=== PATIENT | female | born 1985 | race Caucasian/White ===

== ENCOUNTER 2019-01-31 01:25 | Emergency (ER) | payer BC ==
[2019-01-31] MEDS ORDERED: Morphine 4 MG/ML VIAL ONE (01:46)
[2019-01-31] MEDS ORDERED: Ondansetron PF 4 MG/2 ML Vial ONE (01:46)
[2019-01-31 02:00] LABS: #Basophils 0.1 thou/uL (0.0-0.2); #Eosinphils 0.2 thou/uL (0.0-0.7); #Lymphocytes 2.7 thou/uL (1.20-3.40); #Monocytes 0.9 thou/uL (0.11-0.59); #Neutrophils 7.4 thou/uL (1.40-6.50); %Basophils 0.5 % (0.0-1.0); %Eosinophils 1.4 % (0.0-10.0); %Lymphocytes 24.2 % (21.0-51.0); %Monocytes 8.2 % (0.0-10.0); %Neutrophils 65.6 % (42.0-75.0); Hemoglobin 12.8 g/dL (12.0-16.0); Mean Corpuscular HGB CONC 33.9 g/dL (32.0-36.0); Mean Corpuscular Hemoglobin 29.7 pg (27.0-31.0); Mean Corpuscular Volume 87.6 fL (78.0-98.0); Platelet Count 342 thou/uL (130-400); RBC Distribution Width 12.1 % (11.5-14.5); White Blood Cell (WBC) Count 11.3 thou/uL (4.8-10.8)
[2019-01-31 02:09] LABS: Prothrombin Time 13.3 SEC (12.0-14.7)
[2019-01-31 02:15] LABS: BHCG - Serum Negative (NEGATIVE); Pregs Control Background? CLEAR/WHITE (CLR/WHITE); Pregs Control Bar Appear? YES (CONTROL BAR)
[2019-01-31 02:18] LABS: ALT (SGPT) 25 U/L (8-55); AST (SGOT) 24 U/L (5-34); Albumin 4.2 g/dL (3.5-5.0); Alkaline Phosphatase 75 U/L (40-110); Anion Gap 12 mmol/L (10-20); BUN (Urea Nitrogen) 16 mg/dL (7.0-18.7); Bilirubin, Total 0.3 mg/dL (0.2-1.2); Calc. Creatinine Clearance 0 mL/min (70-130); Calcium 9.2 mg/dL (7.8-10.44); Carbon Dioxide 26 mmol/L (22-29); Chloride 103 mmol/L (98-107); Estimated GFR-MDRD 82; Globulin 2.8 g/dL (2.4-3.5); Glucose 72 mg/dL (70-105); Potassium 3.8 mmol/L (3.5-5.1); Sodium 137 mmol/L (136-145)
[2019-01-31] MEDS ORDERED: Ketorolac Tromethamine 30 MG/ML VIAL ONE (03:59)
--- NOTE | 2019-01-31 08:18 | ULT ---
PRELIMINARY REPORT/[facility]/EMERGENCY AFTER HOURS PROCEDURE: PROCEDURE INFORMATION: Exam: US Duplex Right Lower Extremity Veins, Limited Exam date and time: 01/31/2019 2:04 AM Clinical history: 33 years old, female; Other: Pain, swelling RT calf. HX of dvt at RT ankle 1 wk ago per PT TECHNIQUE: Imaging protocol: Real-time Duplex ultrasound of the Right Lower Extremity with 2-D sheppard scale, color Doppler flow and spectral waveform analysis with image documentation. Limited exam was focused on th e right lower extremity veins. COMPARISON: No relevant prior studies available. FINDINGS: Right deep veins: Unremarkable. The common femoral, femoral, proximal profunda femoral and popliteal veins are patent without thrombus. Normal Doppler waveforms. Normal compressibility and/or augmentati on response. Right superficial veins: Unremarkable. Saphenofemoral junction is patent without thrombus. Soft tissues: Unremarkable. IMPRESSION: No acute findings. No evidence of deep vein thrombosis. Thank you for allowing us to participate in the care of your patient. Dictated and Authenticated by: Ananda Shah MD 01/31/2019 3:41 AM Central Time ([place] & [place]) VENOUS DOPPLER ULTRASOUND OF THE RIGHT LOWER EXTREMITY: I agree with the preliminary report given by Margaret. POS: [facility]
--- NOTE | 2019-01-31 08:36 | RAD ---
Portable frontal chest radiograph: 01/31/2019 COMPARISON: 04/20/2013 HISTORY: Syncope FINDINGS: Lungs are clear. Heart and mediastinal contours appear within normal limits. IMPRESSION: No acute findings.
--- NOTE | 2019-01-31 08:36 | ULT ---
PRELIMINARY REPORT/[facility]/EMERGENCY AFTER HOURS PROCEDURE: PROCEDURE INFORMATION: Exam: US Duplex Right Lower extremity arteries or arterial bypass grafts Exam date and time: 01/31/2019 2:45 AM Clinical history: 33 years old, female; Other: RT calf swelling pain, HX of dvt 1wk ago, slightly dec reased pulses in RT ankle TECHNIQUE: Imaging protocol: Right Real-time duplex scan of the arteries or arterial bypass grafts of the right lower extremity with 2-D sheppard scale, color Doppler flow and spectral waveform analysis. COMPARISON: No relevant prior studies available. FINDINGS: Right common femoral artery: No occlusion or significant stenosis. Normal waveform. Right superficial femoral artery: No occlusion or significant stenosis. Normal waveform. Right popliteal artery: No occlusion or significant stenosis. Normal waveform. Right calf/foot arteries: No occlusion or significant stenosis in the visualized arteries. Normal wav eform. Dorsalis pedis artery is patent. Soft tissues: Unremarkable. IMPRESSION: No acute findings. Thank you for allowing us to participate in the care of your patient. Dictated and Authenticated by: Ananda Shah MD 01/31/2019 3:47 AM Central Time ([place] & [place]) FINAL REPORT RIGHT LOWER EXTREMITY ARTERIAL DOPPLER ULTRASOUND WITH SHEPPARD SCALE AND COLOR FLOW AND SPECTRAL DOPPLER IMAGING: I agree with the preliminary report given by Margaret. POS: [facility]
--- NOTE | 2019-01-31 09:39 | CT ---
PRELIMINARY REPORT/[facility]/EMERGENCY AFTER HOURS PROCEDURE: PROCEDURE INFORMATION: Exam: CT Angiography Chest With Contrast Exam date and time: 01/31/2019 2:23 AM Clinical history: 33 years old, female; Shortness of breath; Patient HX: Patient states that she was at work when she started feeling SOB and lightheaded. States that she remembers everything going dark and then woke up on the floor. EMS states that she was tachy in the 120's but has since come down. Jonny henriquez was diagnosed with a dvt in the rle a week ago. Was started on lovenox and is supposed to be o n coumadin. Patient denies any SOB currently. Denies any cp. Denies any nausea or vomiting. Denies an y diarrhea. Is still having pain in her rle that is sharp and worse with movement. TECHNIQUE: Imaging protocol: Computed tomographic angiography of the chest with intravenous contrast. 3D rendering: MIP reconstructed images were created and reviewed. COMPARISON: No relevant prior studies available. FINDINGS: Pulmonary arteries: Normal. No pulmonary emboli. Aorta: Unremarkable. No aortic aneurysm. No aortic dissection. Thyroid: 17 mm hypodense left thyroid lobe nodule. Lungs: Unremarkable. No consolidation. No masses. Pleural space: Unremarkable. No pneumothorax. No pleural effusion. Heart: Unremarkable. No cardiomegaly. No pericardial effusion. Lymph nodes: Unremarkable. No enlarged lymph nodes. Bones/joints: Unremarkable. No acute fracture. Soft tissues: Unremarkable. IMPRESSION: No acute pulmonary embolus. Thank you for allowing us to participate in the care of your patient. Dictated and Authenticated by: Ananda Shah MD 01/31/2019 3:13 AM Central Time ([place] & [place]) FINAL REPORT CT PULMONARY ANGIOGRAM WITH IV CONTRAST AND 3D POSTPROCESSING: I agree with the preliminary report given by Margaret. POS: [facility]
[2019-01-31] MEDS ORDERED: ISOVUE-370 76%-LOCM 1 ML ONE (11:46)
== END 2019-01-31 04:23 | disposition home or self-care (01) ==
LOC: ERS 01:25
DX: R55 Syncope and collapse (principal); M79.604 Pain in right leg; Z86.711 Personal history of pulmonary embolism; Z79.01 Long term (current) use of anticoagulants
CPT/HCPCS: 71045; 71275; 80053; 84484; 84703; 85025; 85610; 85730; 93923; 96374; 96375; J1885; J2270; J2405; Q9966